=== PATIENT | male | born 1955 | race Caucasian/White ===

== ENCOUNTER → 2017-01-07 | Outpatient (CLI) | payer BC, OTHER ==
--- NOTE | 2017-01-07 10:44 | CR ---
EXAMINATION: Pelvis and left hip HISTORY: Pain COMPARISON: None TECHNIQUE: AP pelvis and 2 views of the left hip FINDINGS: There is no acute osseous abnormality, dislocation, or fracture identified. Bone mineraliz ation and joint spaces appear grossly normal. There is a bone island within the left upper acetabulu m region. Joint spaces are grossly preserved. The iliopectineal lines are intact. The SI joints are symmetric. IMPRESSION: Grossly unremarkable pelvis and left hip.
== END | disposition home or self-care (01) ==
LOC: MW.CHORTHO 07:53
PROVIDERS: ATTEND Orthopaedic Surgery
DX: M25.552 Pain in left hip (principal)
CPT/HCPCS: 73502-26-LT; 73502-LT

== ENCOUNTER 2019-07-17 12:31 | Emergency (ER) | payer OTHER ==
[2019-07-17] MEDS ORDERED: Aspirin 81 MG Tab.Chew PO ONE (12:33)
[2019-07-17] MEDS ORDERED: Sodium Chloride 0.9% 2.5 ML Syringe FLUSH PRN (12:33)
[2019-07-17] MEDS ORDERED: Sodium Chloride 0.9% 10 ML Syringe FLUSH PRN (12:33)
[2019-07-17] MEDS ORDERED: Nitroglycerin 2% Oint 1 GM UD Packet TOP ONE (12:33)
[2019-07-17] MEDS ORDERED: Sodium Chloride 0.9% 1,000 ML IV ONE (12:33)
--- NOTE | 2019-07-17 12:36 | EDM.PDOC ---
ED HPI GENERAL MEDICAL PROBLEM - General Chief Complaint: Chest Pain Stated Complaint: CHEST PAIN Time Seen by Provider: 07/17/19 12:33 - History of Present Illness INITIAL COMMENTS - FREE TEXT/NARRATIVE: HISTORY AND PHYSICAL: History of present illness: Patient 64-year-old white male who presents with a concern of epigastric abdominal pain off and on 1 day with associated shortness of breath mild nausea no vomiting patient denies diaphoresis he denies prior OR or CVA Review of systems: As per history of present illness and below otherwise all systems reviewed and negative. Past medical history: As per history of present illness and as reviewed below otherwise noncontributory. Surgical history: As per history of present illness and as reviewed below otherwise noncontributory. Social history: No reported history of drug or alcohol abuse. Family history: As per history of present illness and as reviewed below otherwise noncontributory. Physical exam: HEENT: Atraumatic, normocephalic, pupils reactive, negative for conjunctival pallor or scleral icterus, mucous membranes moist, throat clear, neck supple, nontender, trachea midline. Lungs: Clear to auscultation, breath sounds equal bilaterally, chest nontender. Heart: S1S2, regular, negative for clicks, rubs, or JVD. Abdomen: Soft, nondistended, mild epigastric tenderness to palpation. Negative for masses or hepatosplenomegaly. Negative for costovertebral tenderness. Pelvis: Stable nontender. Genitourinary: Deferred. Rectal: Deferred. Extremities: Atraumatic, negative for cords or calf pain. Neurovascular unremarkable. Neuro: Awake, alert, oriented. Cranial nerves II through XII unremarkable. Cerebellum unremarkable. Motor and sensory unremarkable throughout. Exam nonfocal. Diagnostics: CBC CMP troponin PT/INR lipase chest x-ray EKG Therapeutics: IV O2 monitor Nitropaste 1 inch aspirin 324 mg by mouth Impression: #1 epigastric abdominal pain Definitive disposition and diagnosis as appropriate pending reevaluation and review of above. - Related Data Allergies Allergy/AdvReac Type Severity Reaction Status Date / Time No Known Allergies Allergy Verified 07/17/19 12:35 Home Meds: Home Meds Losartan [Cozaar] 25 mg PO DAILY 07/17/19 [History] Sildenafil Citrate 100 mg PO ASDIRECTED 07/17/19 [History] amLODIPine Besylate [Amlodipine Besylate] 10 mg PO ASDIRECTED 07/17/19 [History] atorvaSTATin Calcium [Atorvastatin Calcium] 20 mg PO ASDIRECTED 07/17/19 [ History] Past Medical History Cardiovascular History: Reports: High Cholesterol, Hypertension Musculoskeletal History: Reports: Neck Pain, Chronic, Other (See Below) Other Musculoskeletal History: torn left RTC - Past Surgical History HEENT Surgical History: Reports: Cataract Surgery, Other (See Below) Other HEENT Surgeries/Procedures: lens implants ED ROS GENERAL - Review of Systems Review Of Systems: ROS reveals no pertinent complaints other than HPI. ED EXAM, GENERAL - Physical Exam Exam: See Below (See dictation) Course - Vital Signs Text/Narrative:: Patient emergency department course unremarkable I did discuss with patient my concern regarding the etiology of this pain and possible cardiac origin patient was offered and encouraged to be admitted for further evaluation observation and treatment as indicated he declines will follow-up with private medical doctor be given referral also general surgery as well as primary care clinic patient understands risk-benefit Last Recorded V/S: Last Vital Signs Temp 36.4 C 07/17/19 12:38 Pulse 88 07/17/19 14:25 Resp 16 07/17/19 14:25 BP 163/88 H 07/17/19 14:25 Pulse Ox 96 07/17/19 14:25 - Orders/Labs/Meds Orders: Active Orders 24 hr Category Date Time Status EKG Documentation Completion [RC] STAT Care 07/17/19 12:33 Active Sodium Chloride 0.9% [Normal Saline] 1,000 ml Med 07/17/19 12:33 Active IV STAT Sodium Chloride 0.9% [Saline Flush] Med 07/17/19 12:33 Active 10 ml FLUSH ASDIRECTED PRN Sodium Chloride 0.9% [Saline Flush] Med 07/17/19 12:33 Active 2.5 ml FLUSH ASDIRECTED PRN Saline Lock Insert [OM.PC] Stat Oth 07/17/19 12:33 Ordered Medication Orders Sodium Chloride (Normal Saline) 1,000 mls @ 150 mls/hr IV STAT ONE Stop: 07/17/19 19:12 Last Admin: 07/17/19 12:43 Dose: 150 mls/hr Sodium Chloride (Saline Flush) 10 ml FLUSH ASDIRECTED PRN PRN Reason: Keep Vein Open Last Admin: 07/17/19 12:44 Dose: 10 ml Sodium Chloride (Saline Flush) 2.5 ml FLUSH ASDIRECTED PRN PRN Reason: Keep Vein Open Last Admin: 07/17/19 12:44 Dose: 2.5 ml Labs: Laboratory Tests 07/17/19 07/17/19 07/17/19 Range/Units 12:37 12:37 12:37 WBC 6.01 (4.0-11.0) K/uL RBC 4.66 (4.50-5.90) M/uL Hgb 14.6 (13.0-17.0) g/dL Hct 41.8 (38.0-50.0) % MCV 89.7 (80.0-98.0) fL MCH 31.3 (27.0-32.0) pg MCHC 34.9 (31.0-37.0) g/dL RDW Std Deviation 46.0 (28.0-62.0) fl RDW Coeff of [employer] 14 (11.0-15.0) % Plt Count 226 (150-400) K/uL MPV 10.60 (7.40-12.00) fL Neut % (Auto) 70.1 (48.0-80.0) % Lymph % (Auto) 14.3 L (16.0-40.0) % Mccreary % (Auto) 11.3 (0.0-15.0) % Eos % (Auto) 4.3 (0.0-7.0) % Baso % (Auto) 0.0 (0.0-1.5) % Neut # (Auto) 4.2 (1.4-5.7) K/uL Lymph # (Auto) 0.9 (0.6-2.4) K/uL Mccreary # (Auto) 0.7 (0.0-0.8) K/uL Eos # (Auto) 0.3 (0.0-0.7) K/uL Baso # (Auto) 0.0 (0.0-0.1) K/uL Nucleated RBC % 0.0 /100WBC Nucleated RBCs # 0 K/uL INR 0.96 Sodium 143 (136-148) mmol/L Potassium 3.2 L (3.5-5.1) mmol/L Chloride 105 (98-107) mmol/L Carbon Dioxide 29.2 (21.0-32.0) mmol/L BUN 17 (7.0-18.0) mg/dL Creatinine 1.0 (0.8-1.3) mg/dL Est Cr Clr Drug Dosing 65.57 mL/min Estimated GFR (MDRD) > 60.0 ml/min Glucose 121 H (74-106) mg/dL Calcium 9.0 (8.5-10.1) mg/dL Total Bilirubin 0.4 (0.2-1.0) mg/dL AST 45 H (15-37) IU/L ALT 73 H (14-63) IU/L Alkaline Phosphatase 88 (46-116) U/L Troponin I < 0.050 (0.000-0.056) ng/mL Total Protein 7.1 (6.4-8.2) g/dL Albumin 4.2 (3.4-5.0) g/dL Globulin 2.9 (2.6-4.0) g/dL Albumin/Globulin Ratio 1.4 (0.9-1.6) Lipase 128 (73-393) U/L Meds: Medications Generic Name Dose Route Start Last Admin Trade Name Freq PRN Reason Stop Dose Admin Sodium Chloride 1,000 mls @ 150 mls/hr 07/17/19 12:33 07/17/19 12:43 Normal Saline IV 07/17/19 19:12 150 mls/hr STAT ONE Administration Sodium Chloride 10 ml 07/17/19 12:33 07/17/19 12:44 Saline Flush FLUSH 10 ml ASDIRECTED PRN Administration Keep Vein Open Sodium Chloride 2.5 ml 07/17/19 12:33 07/17/19 12:44 Saline Flush FLUSH 2.5 ml ASDIRECTED PRN Administration Keep Vein Open Discontinued Medications Generic Name Dose Route Start Last Admin Trade Name Freq PRN Reason Stop Dose Admin Aspirin 324 mg 07/17/19 12:33 07/17/19 12:44 Aspirin PO 07/17/19 12:34 Not Given ONETIME ONE Iopamidol 100 ml 07/17/19 14:23 07/17/19 14:23 Isovue Multipack-370 (76%) IVPUSH 07/17/19 14:24 100 ml ONETIME STA Administration Nitroglycerin 1 gm 07/17/19 12:33 07/17/19 12:43 Nitro-Bid 2% TOP 07/17/19 12:34 1 gm ONETIME ONE Administration Departure - Departure Time of Disposition: 15:11 Disposition: Home, Self-Care 01 Condition: Good Clinical Impression: Epigastric pain - Discharge Information Forms: ED Department Discharge Additional Instructions: The following information is given to patients seen in the emergency department who are being discharged to home. This information is to outline your options for follow-up care. We provide all patients seen in our emergency department with a follow-up referral. The need for follow-up, as well as the timing and circumstances, are variable depending upon the specifics of your emergency department visit. If you don't have a primary care physician on staff, we will provide you with a referral. We always advise you to contact your personal physician following an emergency department visit to inform them of the circumstance of the visit and for follow-up with them and/or the need for any referrals to a consulting specialist. The emergency department will also refer you to a specialist when appropriate. This referral assures that you have the opportunity for followup care with a specialist. All of these measure are taken in an effort to provide you with optimal care, which includes your followup. Under all circumstances we always encourage you to contact your private physician who remains a resource for coordinating your care. When calling for followup care, please make the office aware that this follow-up is from your recent emergency room visit. If for any reason you are refused follow-up, please contact the [facility] emergency department at and asked to speak to the emergency department charge nurse. [facility] [address] [place] [id number] [facility] Specialty Care - General Surgery Professional Building [address] [place] [address], [address] [place] [address] Follow-up primary care and general surgery as discussed return as needed as discussed continue current medications as prescribed
--- NOTE | 2019-07-17 13:18 | CR ---
Chest: Portable view of the chest was obtained. Comparison: Prior chest x-ray of 01/11/19. Heart size and mediastinum are normal. Lungs are clear. Left shoulder prosthesis is seen. Bony structures are grossly intact. Impression: Left shoulder prosthesis. Nothing acute is seen. Diagnostic code #2 MTDD
[2019-07-17 13:28] LABS: BLOOD UREA NITROGEN,BUN 17 mg/dL (7.0-18.0); CARBON DIOXIDE,CO2 29.2 mmol/L (21.0-32.0); CHLORIDE,CL 105 mmol/L (98-107); GLUCOSE RANDOM 121 mg/dL (74-106); LIPASE 128 U/L (73-393); POTASSIUM,K 3.2 mmol/L (3.5-5.1); SODIUM,NA 143 mmol/L (136-148)
[2019-07-17] MEDS ORDERED: Iopamidol 755 MG/ML 500 ML Multipack Bottle IVPUSH STA (14:23)
--- NOTE | 2019-07-17 15:00 | CT ---
CT abdomen and pelvis Technique: Multiple axial sections were obtained from above the dome of the diaphragm inferiorly through the pubic symphysis. Intravenous contrast was utilized. No oral contrast has been given. Comparison: No prior abdominal imaging is available. Findings: Visualized lung bases show nothing acute. Liver shows fatty infiltration. Small low-density lesion is noted within the left lobe of the liver measuring 9 mm. This is too small to characterize as a cyst or solid lesion by Hounsfield unit measurements. No additional abnormality is appreciated within the liver. Spleen appears within normal limits. Small hiatal hernia is noted. Adrenal glands show no nodule. Pancreas appears within normal limits. Gallbladder contains no calcified gallstones. Atherosclerotic calcification is seen within the aorta and iliac vessels. No retroperitoneal adenopathy or mesenteric abnormalities are seen. Very small cortical lesions are seen within both kidneys which are felt compatible with minimal cysts. No pelvic mass or adenopathy is seen. Diverticuli are seen within the sigmoid colon with no findings of diverticulitis. No free fluid or inflammatory change is seen. Appendix is not visualized with certainty. Bone window settings were reviewed which shows degenerative change within the apophyseal joints at L4-L5 with mild spondylolisthesis as well as vacuum disc phenomena within the L4-L5 disc. Impression: 1. Fatty infiltration within the liver. 2. A 9 mm lesion within the left lobe of the liver too small to characterize by Hounsfield unit measurements as a cyst or small solid abnormality. Since this is the only liver lesion it is most likely incidental. 3. Multiple small cortical lesions within both kidneys most likely due to small cysts. 4. Nothing acute is appreciated on CT study of the abdomen and pelvis. Diagnostic code #2 MTDD
== END 2019-07-17 15:25 | disposition home or self-care (01) ==
LOC: MW.ED 12:31
DX: R10.13 Epigastric pain (principal); I10 Essential (primary) hypertension; E78.5 Hyperlipidemia, unspecified; Z79.899 Other long term (current) drug therapy
CPT/HCPCS: 36415; 71045; 74177; 80053; 83690; 84484; 85025; 85610; 93005; 96360; 96361; 99285; J7040; Q9967; A9270-GY

== ENCOUNTER 2022-06-02 10:17 | Emergency (ER) | payer OTHER ==
[2022-06-02] MEDS ORDERED: Ketorolac 30 MG/ML SDV IM ONE (10:39)
== END 2022-06-02 12:01 | disposition home or self-care (01) ==
LOC: MW.ED 10:17
DX: M25.551 Pain in right hip (principal); M62.838 Other muscle spasm; I10 Essential (primary) hypertension; E78.00 Pure hypercholesterolemia, unspecified; Z79.899 Other long term (current) drug therapy
CPT/HCPCS: 81003; 96372; 99283; J1885

== ENCOUNTER 2023-09-20 07:53 | Emergency (ER) | payer OTHER ==
[2023-09-20] MEDS ORDERED: Acetaminophen/oxyCODONE 325-5 MG Tab PO ONE (08:07)
[2023-09-20] MEDS ORDERED: Ibuprofen 600 MG Tab PO ONE (08:08)
== END 2023-09-20 10:32 | disposition home or self-care (01) ==
LOC: MW.ED 07:53
DX: M48.02 Spinal stenosis, cervical region (principal); I10 Essential (primary) hypertension; E78.00 Pure hypercholesterolemia, unspecified; Z79.899 Other long term (current) drug therapy
CPT/HCPCS: 72125; 73030; 99284; A9270